=== PATIENT | female | born 1985 | race Caucasian/White ===

== ENCOUNTER 2018-04-07 18:01 | Emergency (ER) | payer OTHER ==
[~2018-04-07] VITALS: Ht 160 cm; Wt 68.2 kg
[~2018-04-07 18:01] MED LIST: OMNICEF 300MG300 MG PO; ZOFRAN ODT8 MG PO
[2018-04-07] MEDS ORDERED: ESOMEPRAZOLE MA40 M1 PO (18:17)
[2018-04-07 19:17] LABS: EOS # 0.5 (0.04-0.40); HEMATOCRIT 45.5 % (37.0-47.0); HEMOGLOBIN 15.3 g/dL (12.5-16.0); MEAN CELL VOLUME 100 fl (78-100); MEAN CORPUSCULAR HEMOGLOBIN 34 pg (27-31); MEAN CORPUSCULAR HGB CONC 34 g/dL (33-37); MEAN PLATELET VOLUME 9.2 fl (7.4-10.4); MONO # 0.6 (0.20-0.80); NEU # 4.2 (1.40-6.50); PLATELET COUNT 318 K/mm3 (130-400); RED BLOOD COUNT 4.54 M/mm3 (4.10-5.30); RED CELL DISTRIBUTION WIDTH 12.5 % (11.5-14.5); WHITE BLOOD COUNT 8.3 K/mm3 (4.8-10.8)
[2018-04-07 19:30] LABS: ALBUMIN 4.2 g/dL (3.5-5.0); CALCIUM 9.3 mg/dL (8.4-10.2); POTASSIUM 4.3 mmol/L (3.6-5.0); TOTAL BILIRUBIN 0.5 mg/dL (0.2-1.3); TOTAL PROTEIN 7.4 g/dL (6.3-8.2)
[2018-04-07 19:37] LABS: URINE APPEARANCE CLEAR; URINE BILIRUBIN NEGATIVE (NEGATIVE); URINE BLOOD TRACE (NEGATIVE); URINE COLOR YELLOW; URINE GLUCOSE NEGATIVE (NEGATIVE); URINE KETONE NEGATIVE (NEGATIVE); URINE LEUKOCYTE ESTERASE NEGATIVE (NEGATIVE); URINE NITRATE NEGATIVE (NEGATIVE); URINE PROTEIN(semi-quant) NEGATIVE (NEGATIVE); URINE UROBILINOGEN NORMAL (NORMAL)
[2018-04-07 19:38] LABS: URINE WBC 0-1 /hpf (0-3)
[2018-04-07 20:42] VITALS: BP 128/81
== END 2018-04-07 20:42 | disposition home or self-care (01) ==
LOC: ED 18:01
PROVIDERS: Nurse Practitioner
DX: N20.0 Calculus of kidney (principal); Z87.442 Personal history of urinary calculi; F17.210 Nicotine dependence, cigarettes, uncomplicated; Z90.49 Acquired absence of other specified parts of digestive tract

== ENCOUNTER → 2018-05-05 | Outpatient (CLI) | payer OTHER ==
[2018-04-07 20:42] VITALS: BP 128/81
[~2018-05-05] MED LIST changes: +ESOMEPRAZOLE MA40 M1 PO
== END ==
LOC: LAB 07:55
PROVIDERS: Nurse Practitioner
DX: Z00.00 Encounter for general adult medical examination without abnormal findings (principal)

== ENCOUNTER 2018-12-23 18:22 | Emergency (ER) | payer OTHER ==
[2018-12-23 20:50] LABS: EOS # 0.3 (0.04-0.40); EOS % 2.2 % (1.0-5.0); HEMATOCRIT 44.5 % (37.0-47.0); LYMPH# 2.8 (1.50-4.00); MEAN CELL VOLUME 99 fl (78-100); MEAN CORPUSCULAR HEMOGLOBIN 33 pg (27-31); MEAN CORPUSCULAR HGB CONC 34 g/dL (33-37); MEAN PLATELET VOLUME 9.2 fl (7.4-10.4); MONO # 1.2 (0.20-0.80); NEU # 8.2 (1.40-6.50); PLATELET COUNT 282 K/mm3 (130-400); RED BLOOD COUNT 4.49 M/mm3 (4.10-5.30); WHITE BLOOD COUNT 12.6 K/mm3 (4.8-10.8)
[2018-12-23 20:54] LABS: ALBUMIN 3.9 g/dL (3.5-5.0)
[2018-12-23 20:55] LABS: POTASSIUM 4.1 mmol/L (3.5-5.1)
[2018-12-23 20:56] LABS: CALCIUM 9.5 mg/dL (8.3-10.5)
[2018-12-23 20:59] LABS: TOTAL BILIRUBIN 0.4 mg/dL (0.2-1.2)
[2018-12-23 21:05] LABS: PH-URINE 5.5 (5.0 - 8.0); URINE APPEARANCE CLEAR; URINE BILIRUBIN NEGATIVE (NEGATIVE); URINE BLOOD NEGATIVE (NEGATIVE); URINE COLOR YELLOW; URINE GLUCOSE NEGATIVE (NEGATIVE); URINE KETONE NEGATIVE (NEGATIVE); URINE LEUKOCYTE ESTERASE NEGATIVE (NEGATIVE); URINE NITRATE NEGATIVE (NEGATIVE); URINE PROTEIN(semi-quant) NEGATIVE (NEGATIVE); URINE UROBILINOGEN NORMAL (NORMAL); URINE WBC 0-1 /hpf (0-3)
[2018-12-24 00:20] VITALS: BP 108/69
[2018-12-24 00:22] LABS: CLUE CELLS NOT OBSERVED (Not Observd)
[2018-12-26 06:42] LABS: GRAM STAIN AMS
== END 2018-12-24 00:20 | disposition home or self-care (01) ==
LOC: ED 18:22
PROVIDERS: Nurse Practitioner Family
DX: N83.201 Unspecified ovarian cyst, right side (principal); F17.210 Nicotine dependence, cigarettes, uncomplicated; Z87.442 Personal history of urinary calculi; Z87.42 Personal history of other diseases of the female genital tract; Z90.49 Acquired absence of other specified parts of digestive tract; Z90.89 Acquired absence of other organs; Z90.721 Acquired absence of ovaries, unilateral; Z91.041 Radiographic dye allergy status
CPT/HCPCS: J1200; J2930; J3490; J7030; Q0111; Q9967

== ENCOUNTER 2019-11-02 23:23 | Emergency (ER) | payer OTHER ==
[~2019-11-02] VITALS: Ht 160 cm; Wt 72.7 kg
[2019-11-02] MEDS ORDERED: CYMBALTA30 M1 PO (23:32)
[2019-11-02] MEDS ORDERED: RANITIDINE HCL300 M2 PO (23:33)
[2019-11-03 00:33] LABS: ALBUMIN 3.7 g/dL (3.5-5.0); POTASSIUM 3.5 mmol/L (3.5-5.1)
[2019-11-03 00:34] LABS: CALCIUM 8.7 mg/dL (8.3-10.5)
[2019-11-03 00:35] LABS: TOTAL PROTEIN 6.7 g/dL (6.4-8.3)
[2019-11-03 00:37] LABS: EOS # 0.4 (0.04-0.40); EOS % 2.9 % (1.0-5.0); HEMATOCRIT 41.7 % (37.0-47.0); HEMOGLOBIN 14.3 g/dL (12.5-16.0); MEAN CELL VOLUME 99 fl (78-100); MEAN CORPUSCULAR HEMOGLOBIN 34 pg (27-31); MEAN CORPUSCULAR HGB CONC 34 g/dL (33-37); MEAN PLATELET VOLUME 8.6 fl (7.4-10.4); MONO # 0.9 (0.20-0.80); NEU # 6.6 (1.40-6.50); PLATELET COUNT 357 K/mm3 (130-400); RED CELL DISTRIBUTION WIDTH 13.4 % (11.5-14.5); TOTAL BILIRUBIN 0.2 mg/dL (0.2-1.2); WHITE BLOOD COUNT 11.9 K/mm3 (4.8-10.8)
[2019-11-03 00:59] LABS: PARTIAL THROMBOPLASTIN TIME 22.3 SECONDS (21.0-32.0); PROTHROMBIN TIME 9.3 SECONDS (9.0-12.0)
[2019-11-03 01:01] LABS: PH-URINE 5.5 (5.0 - 8.0); URINE APPEARANCE CLOUDY; URINE BILIRUBIN NEGATIVE (NEGATIVE); URINE BLOOD 50 ery/uL (NEGATIVE); URINE COLOR YELLOW; URINE GLUCOSE NEGATIVE (NEGATIVE); URINE KETONE NEGATIVE (NEGATIVE); URINE LEUKOCYTE ESTERASE 1+ (NEGATIVE); URINE NITRATE POSITIVE (NEGATIVE); URINE PROTEIN(semi-quant) TRACE mg/dL (NEGATIVE); URINE UROBILINOGEN NORMAL (NORMAL); URINE WBC >50 /hpf (0-3)
[2019-11-03 01:02] LABS: URINE MUCUS PRESENT (NOT PRESENT)
[2019-11-03 01:02] LABS: D-DIMER 0.72 mg/L FEU (0.15-0.50)
[2019-11-03] MEDS ORDERED: CEPHALEXIN500 M1 PO (04:30)
[2019-11-03 04:37] VITALS: BP 117/86
== END 2019-11-03 04:37 | disposition home or self-care (01) ==
LOC: ED 23:23
PROVIDERS: Nurse Practitioner
DX: R07.89 Other chest pain (principal); F41.9 Anxiety disorder, unspecified; K21.9 Gastro-esophageal reflux disease without esophagitis; Z87.442 Personal history of urinary calculi
CPT/HCPCS: A4216; J0696; J1200; J2930; J3490; Q9967

== ENCOUNTER → 2020-02-23 | Outpatient (CLI) | payer OTHER ==
[~2020-02-23] MED LIST changes: +CEPHALEXIN500 M1 PO; +CYMBALTA30 M1 PO; +RANITIDINE HCL300 M2 PO
== END ==
LOC: LAB 07:43
DX: I10 Essential (primary) hypertension (principal)

== ENCOUNTER → 2020-04-25 | Outpatient (CLI) | payer OTHER | LOC: LAB 13:55 | DX: J34.89 Other specified disorders of nose and nasal sinuses (principal); R51.9 Headache, unspecified; R53.83 Other fatigue; R50.9 Fever, unspecified; R43.0 Anosmia; R43.2 Parageusia; R09.89 Other specified symptoms and signs involving the circulatory and respiratory systems; Z20.828 Contact with and (suspected) exposure to other viral communicable diseases ==

== ENCOUNTER → 2020-08-03 | Outpatient (CLI) | payer OTHER | LOC: MAMMO 09:15 | DX: Z12.31 Encounter for screening mammogram for malignant neoplasm of breast (principal); N64.89 Other specified disorders of breast ==

== ENCOUNTER → 2020-08-08 | Outpatient (CLI) | payer OTHER | LOC: MAMMO 07:30 | DX: N64.89 Other specified disorders of breast (principal) ==

== ENCOUNTER → 2021-02-03 | Outpatient (CLI) | payer OTHER ==
[2021-02-03 08:45] LABS: ALBUMIN 3.9 g/dL (3.5-5.0); POTASSIUM 4.1 mmol/L (3.5-5.1)
[2021-02-03 08:47] LABS: CALCIUM 9.1 mg/dL (8.3-10.5)
[2021-02-03 08:50] LABS: TOTAL BILIRUBIN 0.3 mg/dL (0.2-1.2)
== END ==
LOC: RAD 07:30
PROVIDERS: Nurse Practitioner Family
DX: N28.1 Cyst of kidney, acquired (principal); I10 Essential (primary) hypertension; R61 Generalized hyperhidrosis

== ENCOUNTER → 2021-10-27 | Outpatient (CLI) | payer OTHER | LOC: RAD 13:48 | DX: R22.1 Localized swelling, mass and lump, neck (principal) ==

== ENCOUNTER → 2021-11-07 | Outpatient (CLI) | payer OTHER | LOC: RAD 11:00 | DX: N83.201 Unspecified ovarian cyst, right side (principal); N83.202 Unspecified ovarian cyst, left side; K57.30 Diverticulosis of large intestine without perforation or abscess without bleeding; M16.10 Unilateral primary osteoarthritis, unspecified hip | CPT/HCPCS: Q9967 ==

== ENCOUNTER → 2021-11-10 | Outpatient (CLI) | payer OTHER | LOC: MAMMO 08:30 | DX: N83.8 Other noninflammatory disorders of ovary, fallopian tube and broad ligament (principal); Z90.710 Acquired absence of both cervix and uterus; Z90.722 Acquired absence of ovaries, bilateral ==

== ENCOUNTER → 2022-07-17 | Outpatient (CLI) | payer OTHER | LOC: LAB 20:00 | DX: U07.1 COVID-19 (principal) ==